=== PATIENT | male | born 1980 | race Caucasian/White ===

== ENCOUNTER 2017-12-16 22:17 | Emergency (ER) | payer OTHER ==
[2017-12-16 22:29] VITALS: TEMP 98.1; O2SAT 96
--- NOTE | 2017-12-16 22:46 | EDPHY ---
H & P Time Seen by Provider: 12/16/17 22:30 HPI/ROS: CHIEF COMPLAINT: Left knee injury HISTORY OF PRESENT ILLNESS: 37-year-old male presents to the emergency department by private vehicle complaining of pain and swelling in his left knee. The patient was [place] a skate park 2 days ago and fell on the left side of his knee hit the concrete wall. He did not hit his head or lose consciousness. He states that he is able to bear weight, however he has had increased swelling and pain. Denies any other trauma or injury. ROS: Denies numbness or tingling in his toes, pain in his left ankle or left hip. Denies symptoms in the right lower extremity or upper extremities bilaterally. Past Medical/Surgical History: Orthopedic surgery Social History: , works as a plumbing service technician. Smoking Status: Never smoked Physical Exam: Examination left knee reveals swelling especially anterior aspect of the knee especially superior to the patella. He has full extension. He has limited flexion secondary to pain. Nontender to palpate in the medial or lateral joint lines. No obvious ligament instability however this is limited given his limited flexion and swelling. Full range of motion of his left ankle and left hip. No abrasions or puncture wounds. No redness or warmth or signs of infection. Constitutional: Initial Vital Signs Temperature (C) 36.7 C 12/16/17 22:27 Heart Rate 95 12/16/17 22:27 Respiratory Rate 18 12/16/17 22:27 Blood Pressure 130/85 H 12/16/17 22:27 O2 Sat (%) 96 12/16/17 22:27 O2 Delivery Mode Room Air Allergies/Adverse Reactions: No Known Allergies Allergy (Unverified 12/16/17 22:29) Home Medications: Medication Instructions Recorded Ibuprofen 800 mg PO 12/16/17 MDM/Departure - MDM Imaging Results: Imaging Impressions Knee X-Ray 12/16/17 22:43 Impression: Mildly displaced fracture of the lower pole of the patella with an associated joint effusion. Imaging: I viewed and interpreted images myself Procedures: Patient was placed in straight leg knee immobilizer and examined post application in good placement with normal [employer]ACH[employer]ER. - Depart Disposition: Home, Routine, Self-Care Clinical Impression: Left patella fracture Qualifiers: Encounter type: initial encounter Fracture type: closed Fracture morphology: unspecified fracture morphology Fracture alignment: nondisplaced Qualified Code( s): S82.002A - Unspecified fracture of left patella, initial encounter for closed fracture Condition: Good Instructions: Patellar Fracture (ED) Additional Instructions: Keep leg in straight leg knee immobilizer until follow-up with orthopedic surgeon this week. Ibuprofen 600 mg every 8 hr as needed for pain. Weightbear as tolerated or use crutches. Ice to help reduce swelling. Referrals: Nakul Murray MD [Medical Doctor] - 2-3 days without fail (Orthopedic surgeon on-call)
[2017-12-16 23:25] VITALS: BP 128/88; PULSE 80; RESP 16
== END 2017-12-16 23:26 | disposition home or self-care (01) ==
DX: S82.002A Unspecified fracture of left patella, initial encounter for closed fracture (principal); W18.09XA Striking against other object with subsequent fall, initial encounter; Y92.89 Other specified places as the place of occurrence of the external cause
CPT/HCPCS: L1830

== ENCOUNTER 2018-07-09 17:09 | Emergency (ER) | payer OTHER ==
[2018-07-09] MEDS ORDERED: IBUPROFEN 600 MG TAB PO ONE (17:24)
--- NOTE | 2018-07-09 17:28 | EDPHY ---
H & P Stated Complaint: OIL BURN TO BACK OF R HAND/CLEANED DRESSED AT WORK Time Seen by Provider: 07/09/18 17:27 HPI/ROS: Chief Complaint: Right hand burn HPI: The patient presents to the ED with a burn to the dorsum of his right hand that occurred at work. The patient burned himself while working with hot oil. He sustained a non circumferential partial-thickness burn to the dorsum of his hand. There is no involvement of the palmar fingers. The patient denies additional garner or acute complaints. REVIEW OF SYSTEMS: Neuro: no headache, numbness, weakness Musculoskeletal: as above Skin: As above Source: Patient Exam Limitations: No limitations - Personal History Current Tetanus Diphtheria and Acellular Pertussis (TDAP): Yes - Medical/Surgical History Hx Asthma: No Hx Chronic Respiratory Disease: No Hx Diabetes: No Hx Cardiac Disease: No Hx Renal Disease: No Hx Cirrhosis: No Hx Alcoholism: No Hx HIV/AIDS: No Hx Splenectomy or Spleen Trauma: No Other PMH: denies - Social History Smoking Status: Never smoked - Physical Exam Exam: General Appearance: Alert, no distress Neurological: Intact motor and sensory function noted to the right hand Skin: Partial-thickness burn to the dorsum of the right hand. Non circumferential Extremities: symmetrical, full range of motion Constitutional: Initial Vital Signs Temperature (C) 36.9 C 07/09/18 17:15 Heart Rate 89 07/09/18 17:15 Respiratory Rate 18 07/09/18 17:15 Blood Pressure 120/82 H 07/09/18 17:15 O2 Sat (%) 95 07/09/18 17:15 O2 Delivery Mode Room Air Allergies/Adverse Reactions: No Known Allergies Allergy (Verified 07/09/18 17:15) Home Medications: Medication Instructions Recorded Ibuprofen 800 mg PO 12/16/17 Medical Decision Making ED Course/Re-evaluation: The patient's wound was debrided and dressed with antibiotic ointment. The patient will be instructed to apply bacitracin ointment twice daily for the next week. The patient has been referred to our on-call hand surgeon for a wound check next week. - Data Points Medications Given: Discontinued Medications Ibuprofen (Motrin) 600 mg PO EDNOW ONE Stop: 07/09/18 17:25 Last Admin: 07/09/18 17:26 Dose: 600 mg Departure - Departure Disposition: Home, Routine, Self-Care Clinical Impression: Burn of hand, right, second degree Condition: Good Instructions: Second Degree Burn (ED) Additional Instructions: 1. Apply antibiotic ointment to your burned twice a day with a dry sterile dressing. 2. Please contact the hand surgeon you have been referred to to schedule a wound check this week. Referrals: Bethany Vásquez MD [Medical Doctor] - As per Instructions
[2018-07-09 18:19] VITALS: BP 129/99
== END 2018-07-09 18:18 | disposition home or self-care (01) ==
PROC: 0HDFXZZ Extraction of Right Hand Skin, External Approach (ICD-10-PCS; principal; 2018-07-09)
DX: T23.261A Burn of second degree of back of right hand, initial encounter (principal); T31.0 Burns involving less than 10% of body surface; X10.2XXA Contact with fats and cooking oils, initial encounter; Y92.511 Restaurant or cafe as the place of occurrence of the external cause; Y99.0 Civilian activity done for income or pay